=== PATIENT | female | born 1940 | race Caucasian/White ===

== ENCOUNTER 2017-01-19 18:32 | Emergency (ER) | payer OTHER, MEDICAID ==
[~2017-01-19] VITALS: Ht 154.9 cm; Wt 83.0 kg
[2017-01-19 18:41] VITALS: BP_SYST 181
[2017-01-19] MEDS ORDERED: METOPROLOL TARTRATE 5 MG/5 ML VIAL IVP ONE (19:00)
[2017-01-19] MEDS ORDERED: ONDANSETRON HCL 4 MG/2 ML VIAL IVP ONE (19:00)
[2017-01-19 19:35] LABS: BASOPHILS % (AUTO) 0.5 % (0.0-2.0); EOSINOPHILS % (AUTO) 0.2 % (0.0-4.0); HEMATOCRIT 39.2 % (36-48); HEMOGLOBIN 13.2 g/dL (12.0-16.0); LYMPHOCYTES # (AUTO) 1.9 K/uL (1.0-5.5); LYMPHOCYTES % (AUTO) 22.9 % (20.5-51.5); MEAN CORPUSCULAR HEMOGLOBIN 30 pg (27-31); MEAN CORPUSCULAR HGB CONC 34 % (32-36); MEAN CORPUSCULAR VOLUME 90 fL (79.0-98.0); MONOCYTES # (AUTO) 0.3 K/uL (0.0-1.0); MONOCYTES % (AUTO) 3.2 % (1.7-9.3); NEUTROPHILS # (AUTO) 6.1 K/uL (1.8-7.7); NEUTROPHILS % (AUTO) 73.2 % (40.0-70.0); PLATELET COUNT (AUTO) 203 K/uL (130-430); RED BLOOD CELL COUNT(AUTO) 4.36 MIL/uL (4.2-6.2); RED CELL DISTRIBUTION WIDTH 12.4 % (9.0-15.0); WHITE BLOOD COUNT (AUTO) 8.3 K/uL (4.8-10.8)
[2017-01-19 19:53] LABS: PROTHROMBIN TIME 10.7 SECS (9.5-12.5)
[2017-01-19 20:00] LABS: ANION GAP 6 (5-15); CALCIUM 9.3 mg/dL (8.4-11.0); CHLORIDE 97 mmol/L (98-107); GLUCOSE 131 mg/dL (70-99); POTASSIUM 3.4 mmol/L (3.5-5.1); SODIUM SERUM 132 mmol/L (136-145); UREA NITROGEN, BLOOD 16 mg/dL (8-21)
[2017-01-19 20:06] LABS: ALANINE AMINOTRANSFERASE 25 U/L (12-78); ASPARTATE AMINOTRANSFERASE 22 U/L (10-37); TOTAL BILIRUBIN 0.5 mg/dL (0.0-1.0); TOTAL PROTEIN, SERUM 8.1 g/dL (6.4-8.3)
[2017-01-19 20:09] LABS: BILIRUBIN,URINE NEGATIVE (NEGATIVE); BLOOD, URINE 1+ (NEGATIVE); CLARITY/URINE CLEAR (CLEAR); COLOR,URINE YELLOW (YELLOW); GLUCOSE,URINE NEGATIVE (NEGATIVE); KETONES,URINE NEGATIVE (NEGATIVE); LEUKOCYTE ESTERASE ,URINE NEGATIVE (NEGATIVE); NITRITE, URINE NEGATIVE (NEGATIVE); PROTEIN URINE 1+ (NEGATIVE); UROBILINOGEN,URINE 0.2 (0.2-1.0)
[2017-01-19] MEDS ORDERED: MORPHINE 4 MG/ML INJ. SYRINGE IVP ONE ×2 (20:15→21:15)
[2017-01-19 20:35] LABS: WBC,URINE 0-3 /HPF (0-3)
[2017-01-19 20:36] LABS: BACTERIA,URINE FEW /HPF (None Seen); MUCUS,URINE 1+ /LPF (None Seen)
[2017-01-19 21:46] VITALS: BP_SYST 127
== END 2017-01-19 21:46 | disposition home or self-care (01) ==
LOC: SED 18:32
DX: G43.909 Migraine, unspecified, not intractable, without status migrainosus (principal); I10 Essential (primary) hypertension; K21.9 Gastro-esophageal reflux disease without esophagitis; J44.9 Chronic obstructive pulmonary disease, unspecified; M81.0 Age-related osteoporosis without current pathological fracture; E78.00 Pure hypercholesterolemia, unspecified
CPT/HCPCS: 36415; 70450; 71010; 80053; 81000; 83880; 84484; 85025; 85610; 93005; 96374; 96375; 99285; J2270; J2405; J3490

== ENCOUNTER 2021-05-15 09:18 | Outpatient (CLI) | payer OTHER, MEDICAID | END 2021-05-15 19:54 | disposition home or self-care (01) | LOC: SCT 09:18 | PROVIDERS: ATTEND Internal Medicine | DX: N13.5 Crossing vessel and stricture of ureter without hydronephrosis (principal); N32.89 Other specified disorders of bladder; I70.0 Atherosclerosis of aorta; I51.7 Cardiomegaly | CPT/HCPCS: 76376 ==

== ENCOUNTER 2023-08-11 20:05 | Emergency (ER) | payer OTHER, MEDICAID ==
[~2023-08-11] VITALS: Ht 152.4 cm; Wt 82.6 kg
[2023-08-11 20:11] VITALS: BP_SYST 137; PULSE 79; RESP 20; TEMP 97.2; O2SAT 95
[2023-08-11] MEDS ORDERED: IBUP-1969 PO (21:51)
[2023-08-11] MEDS ORDERED: KETOROLAC TROMETHAMINE 30 MG VIAL IM ONE (22:00)
[2023-08-11 22:13] VITALS: BP_SYST 137; PULSE 79; RESP 20; TEMP 97.2; O2SAT 95
== END 2023-08-11 22:13 | disposition home or self-care (01) ==
LOC: SED 20:05
DX: S83.91XA Sprain of unspecified site of right knee, initial encounter (principal); Z79.899 Other long term (current) drug therapy; X58.XXXA Exposure to other specified factors, initial encounter; Y93.89 Activity, other specified; Y92.89 Other specified places as the place of occurrence of the external cause; Y99.8 Other external cause status
CPT/HCPCS: 99283; 29505; 73564; 96372; J1885